=== PATIENT | male | born 1950 | race African-American/Black ===

== ENCOUNTER 2017-03-09 06:28 | Emergency (ER) | payer MEDICARE, MEDICAID ==
[~2017-03-09] VITALS: Ht 180.3 cm; Wt 78.9 kg
[~2017-03-09 06:28] MED LIST: GABAPENTIN100 MG ORAL; NKM; OXYCONTIN10 MG ORAL; PROZAC10 MG ORAL; RISPERDAL0.25 MG ORAL; TRAZODONE HCL50 MG PO; UNOBMED; VICODIN1 TA1 ORAL
[2017-03-09 06:47] VITALS: BP 151/96
[2017-03-09] MEDS ORDERED: GABAPENTIN300 MG ORAL (07:28)
[2017-03-09] MEDS ORDERED: Thiamine 100mg tab ORAL ONE (07:30)
[2017-03-09 07:54] VITALS: BP 148/95
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
--- NOTE | 2017-03-09 12:16 | Diagnostic Imaging Report ---
Indications: Pain Technique: Spiral acquisitions obtained through the brain. Angled axial and coronal 5 x 5 mm slices were reconstructed. Total dose length product 1404 mGycm. CTDI vol(s) 70 mGy. Dose reduction achieved using automated exposure control Comparison: 07/02/2013 Findings: Again demonstrated is age-related enlargement of ventricles and extra-axial CSF spaces. No acute hemorrhage or edema. No mass effect or midline shift. Normal mccrary-white differentiation. There is mild periventricular the white matter chronic ischemic change. Again demonstrated are extensive calcifications within the right side of the tentorium, unchanged. Again demonstrated is extensive postsurgical and posttraumatic abnormality of the facial bones. Findings are unchanged from 2013 exam Impression: Chronic and age-related changes, as described Negative for acute intracranial bleed or mass effect. This agrees with the preliminary interpretation provided overnight by Dr. Pastrana The CT scanner at [facility] is accredited by the [employer] and the scans are performed using protocols designed to limit radiation exposure to as low as reasonably achievable to attain images of sufficient resolution adequate for diagnostic evaluation.
== END 2017-03-09 07:56 | disposition home or self-care (01) ==
LOC: EMR 07:09
DX: R51 Headache (principal); S00.31XA Abrasion of nose, initial encounter; X58.XXXA Exposure to other specified factors, initial encounter; Y92.89 Other specified places as the place of occurrence of the external cause; I10 Essential (primary) hypertension
CPT/HCPCS: 70450; 70486; 99284

== ENCOUNTER 2017-04-17 18:26 | Inpatient (IN) | payer MEDICARE, MEDICAID, OTHER ==
[~2017-04-17] VITALS: Ht 180.3 cm; Wt 93.4 kg
[~2017-04-17 18:26] MED LIST changes: +GABAPENTIN300 MG ORAL
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
[2017-04-17 19:46] LABS: BASOPHILS % (AUTO) 1.4 % (0.0-2.0); EOSINOPHILS % (AUTO) 0.7 % (0.0-3.0); LYMPHOCYTES % (AUTO) 36.7 % (20.0-45.0); MEAN CORPUSCULAR HEMOGLOBIN 33.5 PG (27.0-31.0); MEAN CORPUSCULAR HGB CONC 33.5 G/DL (32.0-36.0); MEAN CORPUSCULAR VOLUME 100 FL (80-99); MEAN PLATELET VOLUME 6.4 FL (6.5-10.1); NEUTROPHILS % (AUTO) 49.3 % (45.0-75.0); PLATELET COUNT 130 K/UL (150-450); RED BLOOD COUNT 3.98 M/UL (4.70-6.10); RED CELL DISTRIBUTION WIDTH 12.9 % (11.6-14.8); WHITE BLOOD COUNT 3.9 K/UL (4.8-10.8)
[2017-04-17 19:47] LABS: APPEARANCE,URINE CLEAR; KETONES,URINE NEGATIVE (NEGATIVE); LEUKOCYTE ESTERASE ,URINE NEGATIVE (NEGATIVE); NITRITE,URINE NEGATIVE (NEGATIVE); PH,URINE 5 (4.5-8.0); PROTEIN,URINE NEGATIVE (NEGATIVE); UROBILINOGEN,URINE NORMAL MG/DL (0.0-1.0)
[2017-04-17 20:02] LABS: TROPONIN I < 0.30 ng/mL (<=0.30)
[2017-04-17 20:06] LABS: ALANINE AMINOTRANSFERASE 43 U/L (3-41); ALBUMIN/GLOBULIN RATIO 1.5 (1.0-2.7); ANION GAP 13 (5-15); ASPARTATE AMINO TRANSFERASE 85 U/L (5-40); CALCIUM 8.7 mg/dL (8.6-10.2); CARBON DIOXIDE 24 mEQ/L (20-30); CHLORIDE 106 mEQ/L (98-107); CREATININE 0.8 mg/dL (0.7-1.2); GLOMERULAR FILTRATION RATE > 60 mL/min (>60); HEMOLYSIS 10; POTASSIUM 3.7 mEQ/L (3.4-4.9); SODIUM 143 mEQ/L (135-145); TOTAL PROTEIN 6.5 g/dL (6.6-8.7)
[2017-04-17 20:11] VITALS: BP 138/88
[2017-04-18] MEDS ORDERED: Norco 5mg/325mg tab ORAL PRN (01:00)
[2017-04-18] MEDS ORDERED: Acetaminophen 500mg (ES) tab ORAL PRN (01:00)
[2017-04-18] MEDS: Norco 5mg/325mg tab ORAL PRN ×3 (03:23→15:56)
[2017-04-18 07:53] LABS: BASOPHILS % (AUTO) 0.5 % (0.0-2.0); EOSINOPHILS % (AUTO) 0.9 % (0.0-3.0); LYMPHOCYTES % (AUTO) 31.9 % (20.0-45.0); MEAN CORPUSCULAR HEMOGLOBIN 33.4 PG (27.0-31.0); MEAN CORPUSCULAR VOLUME 101 FL (80-99); MEAN PLATELET VOLUME 6.9 FL (6.5-10.1); MONOCYTES % (AUTO) 11.5 % (1.0-10.0); NEUTROPHILS % (AUTO) 55.2 % (45.0-75.0); PLATELET COUNT 129 K/UL (150-450); RED BLOOD COUNT 3.89 M/UL (4.70-6.10); RED CELL DISTRIBUTION WIDTH 12.9 % (11.6-14.8); WHITE BLOOD COUNT 3.6 K/UL (4.8-10.8)
[2017-04-18 08:14] LABS: ALANINE AMINOTRANSFERASE 39 U/L (3-41); ALBUMIN/GLOBULIN RATIO 1.5 (1.0-2.7); ANION GAP 9 (5-15); ASPARTATE AMINO TRANSFERASE 76 U/L (5-40); CALCIUM 8.3 mg/dL (8.6-10.2); CARBON DIOXIDE 25 mEQ/L (20-30); CHLORIDE 105 mEQ/L (98-107); CREATININE 0.8 mg/dL (0.7-1.2); GLOMERULAR FILTRATION RATE > 60 mL/min (>60); HEMOLYSIS 9; POTASSIUM 4.2 mEQ/L (3.4-4.9); SODIUM 139 mEQ/L (135-145)
[2017-04-18 08:37] VITALS: BP 134/89
[2017-04-18 11:49] VITALS: BP 120/77
--- NOTE | 2017-04-18 12:43 | Consultation ---
History of Present Illness General Chief Complaint: Syncope Present Illness HPI 66-year-old male presented after syncopal episodes. The patient reportedly had two witness syncopal episodes. the pt has mmp including brain damage. the pt knew he was in the hospital and the year however he didn't know the date. the pt was a poor historian, due to cognitive impairment. the pt endorses depressed mood, insomnia and anxiety. he is on trazodone "it makes me sleep". no manic or psychotic sxs. His appetite is fair. No SI/Hi. he has a SA "Long time ago." Allergies: Coded Allergies: No Known Allergies (Verified , 02/02/11) Medication History Scheduled Fluoxetine Hcl* (Prozac*), 10 MG ORAL DAILY, (Reported) Gabapentin* (Gabapentin*), 300 MG ORAL THREE TIMES A DAY No Known Medications* (NKM - No Known Medications*), 0 ., (Reported) Oxycodone Hcl Er* (Oxycontin*), 10 MG ORAL DAILY, (Reported) Miscellaneous Medications Acetaminophen/Hydrocodone 5/500 (Vicodin), 0 ORAL, (Reported) Gabapentin* (Gabapentin*), 300 ORAL, (Reported) Risperidone* (Risperdal*), 0 ORAL, (Reported) Trazodone Hcl* (Desyrel*), 0 PO, (Reported) Patient History Healthcare decision maker Resuscitation status Full Code Advanced Directive on File No Past Medical/Surgical History Past Medical/Surgical History: (1) Altered mental status (2) Failure to thrive (3) Dehydration (4) Headache (5) Failure to thrive (6) Chest pain (7) Dehydration (8) Chest pain (9) Opiate addiction (10) Rhabdomyolysis (11) Acute chest pain (12) Hypokalemia (13) Atypical chest pain (14) Altered mental status (15) inability to care for self (16) suicidal ideation (17) medical screening exam (18) alcohol abuse (19) facial pain (20) [id number] (21) alcohol abuse (22) Acute alcoholic intoxication (23) Dislocation of left shoulder joint (24) Shoulder fracture, left (25) Left shoulder pain (26) Osteoarthritis of left shoulder (27) Drug abuse (28) Paranoid schizophrenia (29) Facial pain (30) Traumatic brain injury (31) Syncope Review of Systems Constitutional: Reports: malaise, weakness Psychiatric: Reports: anxiety, depressed feelings, emotional problems Physical Exam General Appearance: alert, mild distress, thin Neurologic: alert, responsive, disoriented, depressed affect Last 24 Hour Vital Signs Date Time Temp Pulse Resp B/P Pulse Ox O2 Delivery O2 Flow Rate FiO2 04/18/17 11:49 97.3 62 18 120/77 96 Room Air 04/18/17 09:31 70 134/89 04/18/17 08:37 97.5 70 18 134/89 95 Room Air 04/18/17 08:01 69 04/18/17 04:00 63 04/18/17 00:07 97.9 77 23 138/88 96 Room Air 04/18/17 00:00 63 04/17/17 20:11 97.9 77 23 138/88 96 Room Air 04/17/17 18:29 97.9 90 16 156/101 95 Room Air Intake and Output 04/17/17 04/18/17 19:00 07:00 Intake Total 600 ml Output Total 850 ml Balance -250 ml Intake Oral 100 ml IV Total 500 ml Output Urine Total 850 ml # Voids 3 Laboratory Tests Test 04/17/17 19:17 04/17/17 19:31 04/18/17 06:50 White Blood Count 3.9 K/UL (4.8-10.8) L 3.6 K/UL (4.8-10.8) L Red Blood Count 3.98 M/UL (4.70-6.10) L 3.89 M/UL (4.70-6.10) L Hemoglobin 13.3 G/DL (14.2-18.0) L 13.0 G/DL (14.2-18.0) L Hematocrit 39.8 % (42.0-52.0) L 39.3 % (42.0-52.0) L Mean Corpuscular Volume 100 FL (80-99) H 101 FL (80-99) H Mean Corpuscular Hemoglobin 33.5 PG (27.0-31.0) H 33.4 PG (27.0-31.0) H Mean Corpuscular Hemoglobin Concent 33.5 G/DL (32.0-36.0) 33.0 G/DL (32.0-36.0) Red Cell Distribution Width 12.9 % (11.6-14.8) 12.9 % (11.6-14.8) Platelet Count 130 K/UL (150-450) L 129 K/UL (150-450) L Mean Platelet Volume 6.4 FL (6.5-10.1) L 6.9 FL (6.5-10.1) Neutrophils (%) (Auto) 49.3 % (45.0-75.0) 55.2 % (45.0-75.0) Lymphocytes (%) (Auto) 36.7 % (20.0-45.0) 31.9 % (20.0-45.0) Monocytes (%) (Auto) 12.0 % (1.0-10.0) H 11.5 % (1.0-10.0) H Eosinophils (%) (Auto) 0.7 % (0.0-3.0) 0.9 % (0.0-3.0) Basophils (%) (Auto) 1.4 % (0.0-2.0) 0.5 % (0.0-2.0) Sodium Level 143 mEQ/L (135-145) 139 mEQ/L (135-145) Potassium Level 3.7 mEQ/L (3.4-4.9) 4.2 mEQ/L (3.4-4.9) Chloride Level 106 mEQ/L (98-107) 105 mEQ/L (98-107) Carbon Dioxide Level 24 mEQ/L (20-30) 25 mEQ/L (20-30) Anion Gap 13 (5-15) 9 (5-15) Blood Urea Nitrogen 9 mg/dL (7-23) 10 mg/dL (7-23) Creatinine 0.8 mg/dL (0.7-1.2) 0.8 mg/dL (0.7-1.2) Estimat Glomerular Filtration Rate > 60 mL/min (>60) > 60 mL/min (>60) Glucose Level 86 mg/dL (74-106) 92 mg/dL (74-106) Calcium Level 8.7 mg/dL (8.6-10.2) 8.3 mg/dL (8.6-10.2) L Total Bilirubin 0.5 mg/dL (0.0-1.2) 0.7 mg/dL (0.0-1.2) Aspartate Amino Transf (AST/SGOT) 85 U/L (5-40) H 76 U/L (5-40) H Alanine Aminotransferase (ALT/SGPT) 43 U/L (3-41) H 39 U/L (3-41) Alkaline Phosphatase 64 U/L (40-129) 60 U/L (40-129) Troponin I < 0.30 ng/mL (<=0.30) Total Protein 6.5 g/dL (6.6-8.7) L 6.0 g/dL (6.6-8.7) L Albumin 3.9 g/dL (3.5-5.2) 3.6 g/dL (3.5-5.2) Globulin 2.6 g/dL 2.4 g/dL Albumin/Globulin Ratio 1.5 (1.0-2.7) 1.5 (1.0-2.7) Serum Alcohol < 10 mg/dL Urine Color Yellow Urine Appearance Clear Urine pH 5 (4.5-8.0) Urine Specific [place] 1.020 (1.005-1.035) Urine Protein Negative (NEGATIVE) Urine Glucose (UA) Negative (NEGATIVE) Urine Ketones Negative (NEGATIVE) Urine Occult Blood Negative (NEGATIVE) Urine Nitrite Negative (NEGATIVE) Urine Bilirubin Negative (NEGATIVE) Urine Urobilinogen Normal MG/DL (0.0-1.0) Urine Leukocyte Esterase Negative (NEGATIVE) Urine Opiates Screen Negative (NEGATIVE) Urine Barbiturates Screen Negative (NEGATIVE) Phencyclidine (PCP) Screen Negative (NEGATIVE) Urine Amphetamines Screen Negative (NEGATIVE) Urine Benzodiazepines Screen Negative (NEGATIVE) Urine Cocaine Screen Negative (NEGATIVE) Urine Marijuana (THC) Screen Negative (NEGATIVE) Height (Feet): 5 Height (Inches): 11.00 Weight (Pounds): 206 Medications Current Medications Medications (Trade) Dose Ordered Sig/Brett Route PRN Reason Start Time Stop Time Status Last Admin Dose Admin Acetaminophen (Tylenol) 500 mg Q4H PRN ORAL Mild Pain/Temp > 100.5 04/18/17 01:00 05/18/17 00:59 Acetaminophen/ Hydrocodone Bitart ([place] 5/325) 1 tab Q6H PRN ORAL Moderate Breakthru Pain (5-7) 04/18/17 07:00 04/25/17 06:59 04/18/17 09:34 Amlodipine Besylate (Norvasc) 5 mg DAILY ORAL 04/18/17 09:00 05/18/17 08:59 04/18/17 09:31 Assessment/Plan Status: stable Assessment/Plan the pt was anxious and was perseverating "slow down, I feel confused". s/p TBI last year. He was in come for one month and had brain surgery. -dc trazodone -start Florecita Villatoro M.D. Apr 18, 2017 12:43
--- NOTE | 2017-04-18 13:07 | Neurology Progress Note ---
Objective Physical Exam Last Vital Signs Date Time Temp Pulse Resp B/P Pulse Ox O2 Delivery O2 Flow Rate FiO2 04/18/17 11:49 97.3 62 18 120/77 96 Room Air Laboratory Tests Test 04/17/17 19:17 04/17/17 19:31 04/18/17 06:50 White Blood Count 3.9 K/UL (4.8-10.8) L 3.6 K/UL (4.8-10.8) L Red Blood Count 3.98 M/UL (4.70-6.10) L 3.89 M/UL (4.70-6.10) L Hemoglobin 13.3 G/DL (14.2-18.0) L 13.0 G/DL (14.2-18.0) L Hematocrit 39.8 % (42.0-52.0) L 39.3 % (42.0-52.0) L Mean Corpuscular Volume 100 FL (80-99) H 101 FL (80-99) H Mean Corpuscular Hemoglobin 33.5 PG (27.0-31.0) H 33.4 PG (27.0-31.0) H Mean Corpuscular Hemoglobin Concent 33.5 G/DL (32.0-36.0) 33.0 G/DL (32.0-36.0) Red Cell Distribution Width 12.9 % (11.6-14.8) 12.9 % (11.6-14.8) Platelet Count 130 K/UL (150-450) L 129 K/UL (150-450) L Mean Platelet Volume 6.4 FL (6.5-10.1) L 6.9 FL (6.5-10.1) Neutrophils (%) (Auto) 49.3 % (45.0-75.0) 55.2 % (45.0-75.0) Lymphocytes (%) (Auto) 36.7 % (20.0-45.0) 31.9 % (20.0-45.0) Monocytes (%) (Auto) 12.0 % (1.0-10.0) H 11.5 % (1.0-10.0) H Eosinophils (%) (Auto) 0.7 % (0.0-3.0) 0.9 % (0.0-3.0) Basophils (%) (Auto) 1.4 % (0.0-2.0) 0.5 % (0.0-2.0) Sodium Level 143 mEQ/L (135-145) 139 mEQ/L (135-145) Potassium Level 3.7 mEQ/L (3.4-4.9) 4.2 mEQ/L (3.4-4.9) Chloride Level 106 mEQ/L (98-107) 105 mEQ/L (98-107) Carbon Dioxide Level 24 mEQ/L (20-30) 25 mEQ/L (20-30) Anion Gap 13 (5-15) 9 (5-15) Blood Urea Nitrogen 9 mg/dL (7-23) 10 mg/dL (7-23) Creatinine 0.8 mg/dL (0.7-1.2) 0.8 mg/dL (0.7-1.2) Estimat Glomerular Filtration Rate > 60 mL/min (>60) > 60 mL/min (>60) Glucose Level 86 mg/dL (74-106) 92 mg/dL (74-106) Calcium Level 8.7 mg/dL (8.6-10.2) 8.3 mg/dL (8.6-10.2) L Total Bilirubin 0.5 mg/dL (0.0-1.2) 0.7 mg/dL (0.0-1.2) Aspartate Amino Transf (AST/SGOT) 85 U/L (5-40) H 76 U/L (5-40) H Alanine Aminotransferase (ALT/SGPT) 43 U/L (3-41) H 39 U/L (3-41) Alkaline Phosphatase 64 U/L (40-129) 60 U/L (40-129) Troponin I < 0.30 ng/mL (<=0.30) Total Protein 6.5 g/dL (6.6-8.7) L 6.0 g/dL (6.6-8.7) L Albumin 3.9 g/dL (3.5-5.2) 3.6 g/dL (3.5-5.2) Globulin 2.6 g/dL 2.4 g/dL Albumin/Globulin Ratio 1.5 (1.0-2.7) 1.5 (1.0-2.7) Serum Alcohol < 10 mg/dL Urine Color Yellow Urine Appearance Clear Urine pH 5 (4.5-8.0) Urine Specific [place] 1.020 (1.005-1.035) Urine Protein Negative (NEGATIVE) Urine Glucose (UA) Negative (NEGATIVE) Urine Ketones Negative (NEGATIVE) Urine Occult Blood Negative (NEGATIVE) Urine Nitrite Negative (NEGATIVE) Urine Bilirubin Negative (NEGATIVE) Urine Urobilinogen Normal MG/DL (0.0-1.0) Urine Leukocyte Esterase Negative (NEGATIVE) Urine Opiates Screen Negative (NEGATIVE) Urine Barbiturates Screen Negative (NEGATIVE) Phencyclidine (PCP) Screen Negative (NEGATIVE) Urine Amphetamines Screen Negative (NEGATIVE) Urine Benzodiazepines Screen Negative (NEGATIVE) Urine Cocaine Screen Negative (NEGATIVE) Urine Marijuana (THC) Screen Negative (NEGATIVE) Impression/Recommendations Problems: (1) Syncope, vasovagal (2) Traumatic brain injury (3) Opiate addiction Status: stable Recommendations # [id number] GRAZYNA MORAN Apr 18, 2017 13:07
[2017-04-18 13:39] LABS: THYROID STIMULATING HORMONE 1.78 uIU/mL (0.300-4.500)
--- NOTE | 2017-04-18 15:02 | Infectious Diseases Prog Note ---
Assessment/Plan Problems: (1) Syncope Assessment & Plan: doubt infectious etiology, will send blood culture, and check CXR, monitor clinically for now, recommend neurology and cardiology consult (2) Dehydration Assessment & Plan: continue IVF for hydration (3) Traumatic brain injury Assessment & Plan: continue supportive care . Subjective Allergies: Coded Allergies: No Known Allergies (Verified , 02/02/11) Objective Vital Signs Last 24 Hour Vital Signs Date Time Temp Pulse Resp B/P Pulse Ox O2 Delivery O2 Flow Rate FiO2 04/18/17 11:49 97.3 62 18 120/77 96 Room Air 04/18/17 09:31 70 134/89 04/18/17 08:37 97.5 70 18 134/89 95 Room Air 04/18/17 08:01 69 04/18/17 04:00 63 04/18/17 00:07 97.9 77 23 138/88 96 Room Air 04/18/17 00:00 63 04/17/17 20:11 97.9 77 23 138/88 96 Room Air 04/17/17 18:29 97.9 90 16 156/101 95 Room Air Height (Feet): 5 Height (Inches): 11.00 Weight (Pounds): 206 Laboratory Tests Test 04/17/17 19:17 04/17/17 19:31 04/18/17 06:50 White Blood Count 3.9 K/UL (4.8-10.8) L 3.6 K/UL (4.8-10.8) L Red Blood Count 3.98 M/UL (4.70-6.10) L 3.89 M/UL (4.70-6.10) L Hemoglobin 13.3 G/DL (14.2-18.0) L 13.0 G/DL (14.2-18.0) L Hematocrit 39.8 % (42.0-52.0) L 39.3 % (42.0-52.0) L Mean Corpuscular Volume 100 FL (80-99) H 101 FL (80-99) H Mean Corpuscular Hemoglobin 33.5 PG (27.0-31.0) H 33.4 PG (27.0-31.0) H Mean Corpuscular Hemoglobin Concent 33.5 G/DL (32.0-36.0) 33.0 G/DL (32.0-36.0) Red Cell Distribution Width 12.9 % (11.6-14.8) 12.9 % (11.6-14.8) Platelet Count 130 K/UL (150-450) L 129 K/UL (150-450) L Mean Platelet Volume 6.4 FL (6.5-10.1) L 6.9 FL (6.5-10.1) Neutrophils (%) (Auto) 49.3 % (45.0-75.0) 55.2 % (45.0-75.0) Lymphocytes (%) (Auto) 36.7 % (20.0-45.0) 31.9 % (20.0-45.0) Monocytes (%) (Auto) 12.0 % (1.0-10.0) H 11.5 % (1.0-10.0) H Eosinophils (%) (Auto) 0.7 % (0.0-3.0) 0.9 % (0.0-3.0) Basophils (%) (Auto) 1.4 % (0.0-2.0) 0.5 % (0.0-2.0) Sodium Level 143 mEQ/L (135-145) 139 mEQ/L (135-145) Potassium Level 3.7 mEQ/L (3.4-4.9) 4.2 mEQ/L (3.4-4.9) Chloride Level 106 mEQ/L (98-107) 105 mEQ/L (98-107) Carbon Dioxide Level 24 mEQ/L (20-30) 25 mEQ/L (20-30) Anion Gap 13 (5-15) 9 (5-15) Blood Urea Nitrogen 9 mg/dL (7-23) 10 mg/dL (7-23) Creatinine 0.8 mg/dL (0.7-1.2) 0.8 mg/dL (0.7-1.2) Estimat Glomerular Filtration Rate > 60 mL/min (>60) > 60 mL/min (>60) Glucose Level 86 mg/dL (74-106) 92 mg/dL (74-106) Calcium Level 8.7 mg/dL (8.6-10.2) 8.3 mg/dL (8.6-10.2) L Total Bilirubin 0.5 mg/dL (0.0-1.2) 0.7 mg/dL (0.0-1.2) Aspartate Amino Transf (AST/SGOT) 85 U/L (5-40) H 76 U/L (5-40) H Alanine Aminotransferase (ALT/SGPT) 43 U/L (3-41) H 39 U/L (3-41) Alkaline Phosphatase 64 U/L (40-129) 60 U/L (40-129) Troponin I < 0.30 ng/mL (<=0.30) Total Protein 6.5 g/dL (6.6-8.7) L 6.0 g/dL (6.6-8.7) L Albumin 3.9 g/dL (3.5-5.2) 3.6 g/dL (3.5-5.2) Globulin 2.6 g/dL 2.4 g/dL Albumin/Globulin Ratio 1.5 (1.0-2.7) 1.5 (1.0-2.7) Serum Alcohol < 10 mg/dL Urine Color Yellow Urine Appearance Clear Urine pH 5 (4.5-8.0) Urine Specific [place] 1.020 (1.005-1.035) Urine Protein Negative (NEGATIVE) Urine Glucose (UA) Negative (NEGATIVE) Urine Ketones Negative (NEGATIVE) Urine Occult Blood Negative (NEGATIVE) Urine Nitrite Negative (NEGATIVE) Urine Bilirubin Negative (NEGATIVE) Urine Urobilinogen Normal MG/DL (0.0-1.0) Urine Leukocyte Esterase Negative (NEGATIVE) Urine Opiates Screen Negative (NEGATIVE) Urine Barbiturates Screen Negative (NEGATIVE) Phencyclidine (PCP) Screen Negative (NEGATIVE) Urine Amphetamines Screen Negative (NEGATIVE) Urine Benzodiazepines Screen Negative (NEGATIVE) Urine Cocaine Screen Negative (NEGATIVE) Urine Marijuana (THC) Screen Negative (NEGATIVE) Ammonia Pending Vitamin B12 Level Pending Thyroid Stimulating Hormone (TSH) 1.780 uIU/mL (0.300-4.500) Current Medications Medications (Trade) Dose Ordered Sig/Brett Route PRN Reason Start Time Stop Time Status Last Admin Dose Admin Acetaminophen (Tylenol) 500 mg Q4H PRN ORAL Mild Pain/Temp > 100.5 04/18/17 01:00 05/18/17 00:59 Acetaminophen/ Hydrocodone Bitart ([place] 5/325) 1 tab Q6H PRN ORAL Moderate Breakthru Pain (5-7) 04/18/17 07:00 04/25/17 06:59 04/18/17 09:34 Amlodipine Besylate (Norvasc) 5 mg DAILY ORAL 04/18/17 09:00 05/18/17 08:59 04/18/17 09:31 Escitalopram Oxalate (Lexapro) 10 mg DAILY ORAL 04/19/17 09:00 05/19/17 08:59 Mirtazapine (Remeron) 7.5 mg QHS ORAL 04/18/17 21:00 05/18/17 20:59 Kelli Smith M.D. Apr 18, 2017 15:02
[2017-04-18 15:39] VITALS: BP 131/88
--- NOTE | 2017-04-18 16:45 | Consultation ---
DATE OF CONSULTATION: INFECTIOUS DISEASE CONSULTATION CONSULTING PHYSICIAN: Kelli Smith M.D. REQUESTING PHYSICIAN: Brii Waters M.D. REASON FOR CONSULTATION: Syncope, rule out infectious etiology. HISTORY OF PRESENT ILLNESS: The patient is a 66-year-old male with history of traumatic brain injury, hypertension, and memory loss, was sent to [facility] for syncopal episode at the facility where he lives. The patient had two witnessed syncopal episodes, one of them happened while he was standing. The patient denied any cough or shortness of breath. No fever or chills. No nausea or diarrhea. No urinary symptoms. The patient was admitted to the hospital for further evaluation and management and I was consulted by the primary provider for antibiotics treatment for possible infection. PAST MEDICAL HISTORY: Significant for hypertension, traumatic brain injury, and memory loss. PAST SURGICAL HISTORY: Unknown and undocumented. MEDICATIONS: He is on Lexapro, Remeron, Norvasc, Biddle, and Tylenol. ALLERGIES: He has no known drug allergy. SOCIAL HISTORY: He lives in long term facility. No recent drugs, tobacco, or alcohol. FAMILY HISTORY: Unable to obtain. REVIEW OF SYSTEMS: Unable to obtain. The patient is a poor historian and cannot provide any history. PHYSICAL EXAMINATION: VITAL SIGNS: Temperature 97.3 degrees, pulse 62, respirations 18, blood pressure 120/77, and pulse oximetry 96% on room air. GENERAL: A middle-aged male, lying in bed, awake, alert, and not in distress. Follow commands. HEENT: Normocephalic and atraumatic. Pupils reactive to light equally. Pale sclera. Moist oral mucosa. No exudate. NECK: Supple. No lymphadenopathy. CARDIOVASCULAR: Regular rate and rhythm. No murmur or gallop. LUNGS: Clear bilaterally. Diminished breathing sounds at the bases. No wheezing or rhonchi. ABDOMEN: Soft, nontender, and nondistended. Positive bowel sounds. No hepatosplenomegaly or ascites. EXTREMITY: No edema or cyanosis. SKIN: No rash or hives. NEUROLOGIC: He moves all extremities. No facial droop. No sensory changes. LABORATORY DATA: Labs showed white count of 3.6, hemoglobin of 13, and platelet count of 129,000. BUN of 10 and creatinine of 0.8. AST of 76 and ALT of 39. Urine analysis was negative for urinary tract infection. Toxicology screening was negative. IMAGING: He had a head CT scan, which was negative for any acute bleeding. ASSESSMENT AND RECOMMENDATIONS: 1. Syncope, suspect vasovagal in etiology. Doubt infectious etiology at this point, but we will send blood culture and order a chest x-ray to rule out pneumonia. We will monitor the patient clinically for now. Recommend Neurology and Cardiology consult. Continue tele monitor. 2. Dehydration. Continue intravenous fluid for hydration and monitor blood pressure and electrolytes. 3. Traumatic brain injury. Continue supportive care. Kelli Smith M.D. DR: MURIEL JOB#: [id number] CC:
--- NOTE | 2017-04-18 16:48 | Cardiology Report ---
APPROVED REPORT EKG Measurement Heart [id number] Sinus rhythm with 1st degree AV block Otherwise normal ECG
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
[2017-04-18] MEDS ORDERED: Pneumococcal Vaccine 25mcg/0.5ml IM ONE (18:30)
[2017-04-18 20:00] VITALS: BP 136/86
[2017-04-19] VITALS (7 sets, daily range): BP systolic 126–151; BP diastolic 60–93
[2017-04-19] MEDS: Norco 5mg/325mg tab ORAL PRN ×3 (03:47→21:32)
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
--- NOTE | 2017-04-19 17:25 | Infectious Diseases Prog Note ---
Assessment/Plan Problems: (1) Syncope Assessment & Plan: doubt infectious etiology, await blood culture, and CXR, monitor clinically for now, neurology and cardiology are following (2) Dehydration Assessment & Plan: continue IVF for hydration (3) Traumatic brain injury Assessment & Plan: continue supportive care . Subjective Constitutional: Reports: no symptoms HEENT: Reports: no symptoms Respiratory: Reports: no symptoms Breasts: Reports: no symptoms Cardiovascular: Reports: no symptoms Gastrointestinal/Abdominal: Reports: no symptoms Genitourinary: Reports: no symptoms Neurologic: Reports: no symptoms Psychiatric: Reports: no symptoms Skin: Reports: no symptoms Endocrine: Reports: no symptoms Hematologic: Reports: no symptoms Allergies: Coded Allergies: No Known Allergies (Verified , 02/02/11) Objective Vital Signs Last 24 Hour Vital Signs Date Time Temp Pulse Resp B/P Pulse Ox O2 Delivery O2 Flow Rate FiO2 04/19/17 16:00 97.2 92 21 140/89 96 Room Air 04/19/17 12:00 68 04/19/17 12:00 97.7 68 20 126/77 99 Room Air 04/19/17 11:03 74 123/74 04/19/17 08:00 97.4 76 21 150/60 94 Room Air 04/19/17 08:00 78 04/19/17 04:00 66 04/19/17 04:00 97.0 68 18 131/89 95 Room Air 04/19/17 00:00 66 04/19/17 00:00 97.0 65 18 151/74 95 Room Air 04/19/17 00:00 97.0 68 18 131/89 95 Room Air 04/18/17 20:00 74 04/18/17 20:00 97.0 65 18 136/86 95 Room Air Height (Feet): 5 Height (Inches): 11.00 Weight (Pounds): 206 General Appearance: WD/WN, no acute distress HEENT: normocephalic, atraumatic, anicteric, mucous membranes moist, PERRL, EOMI, pharynx normal, no JVD Respiratory/Chest: chest wall non-tender, lungs clear, normal breath sounds, no respiratory distress, no accessory muscle use Cardiovascular: normal peripheral pulses, normal rate, regular rhythm, no gallop/murmur, no JVD Abdomen: normal bowel sounds, soft, non tender, no organomegaly, non distended , no mass, no scars Extremities: no cyanosis, no clubbing Skin: no rash, no lesions Current Medications Medications (Trade) Dose Ordered Sig/Brett Route PRN Reason Start Time Stop Time Status Last Admin Dose Admin Acetaminophen (Tylenol) 500 mg Q4H PRN ORAL Mild Pain/Temp > 100.5 04/18/17 01:00 05/18/17 00:59 Acetaminophen/ Hydrocodone Bitart ([place] 5/325) 1 tab Q6H PRN ORAL Moderate Breakthru Pain (5-7) 04/18/17 07:00 04/25/17 06:59 04/19/17 15:32 Amlodipine Besylate (Norvasc) 5 mg DAILY ORAL 04/18/17 09:00 05/18/17 08:59 04/19/17 11:03 Escitalopram Oxalate (Lexapro) 10 mg DAILY ORAL 04/19/17 09:00 05/19/17 08:59 04/19/17 11:01 Gabapentin (Neurontin) 300 mg THREE TIMES A DAY ORAL 04/19/17 18:00 05/19/17 17:59 Mirtazapine (Remeron) 7.5 mg QHS ORAL 04/18/17 21:00 05/18/17 20:59 04/18/17 20:22 Kelli Smith M.D. Apr 19, 2017 17:25
--- NOTE | 2017-04-19 20:01 | General Progress Note ---
Assessment/Plan Problem List: (1) Rhabdomyolysis (2) Acute chest pain (3) Osteoarthritis of left shoulder ICD Codes: M19.012 - Primary osteoarthritis, left shoulder SNOMED: 52903872 (4) Dehydration (5) Syncope ICD Codes: R55 - Syncope and collapse SNOMED: 446154066, 477182592 (6) Traumatic brain injury ICD Codes: S06.9X9A - Unspecified intracranial injury with loss of consciousness of unspecified duration, initial encounter SNOMED: 091132644, 768073457 Status: progressing Assessment/Plan afebrile vitals stable no arrythmia no acute events Subjective ROS Limited/Unobtainable: Yes Constitutional: Reports: no symptoms Allergies: Coded Allergies: No Known Allergies (Verified , 02/02/11) Objective Last 24 Hour Vital Signs Date Time Temp Pulse Resp B/P Pulse Ox O2 Delivery O2 Flow Rate FiO2 04/19/17 19:50 98.8 72 20 137/93 98 Room Air 04/19/17 16:31 97.2 04/19/17 16:00 65 04/19/17 16:00 97.2 92 21 140/89 96 Room Air 04/19/17 12:00 68 04/19/17 12:00 97.7 68 20 126/77 99 Room Air 04/19/17 11:03 74 123/74 04/19/17 08:00 97.4 76 21 150/60 94 Room Air 04/19/17 08:00 78 04/19/17 04:00 66 04/19/17 04:00 97.0 68 18 131/89 95 Room Air 04/19/17 00:00 66 04/19/17 00:00 97.0 65 18 151/74 95 Room Air 04/19/17 00:00 97.0 68 18 131/89 95 Room Air Intake and Output 04/18/17 04/19/17 19:00 07:00 Intake Total 360 ml 1090 ml Output Total 2150 ml 2550 ml Balance -1790 ml -1460 ml Intake Oral 360 ml 1090 ml Output Urine Total 2150 ml 2550 ml Height (Feet): 5 Height (Inches): 11.00 Weight (Pounds): 206 Neck: supple Cardiovascular: normal rate Respiratory/Chest: lungs clear Brii Waters MD Apr 19, 2017 20:01
--- NOTE | 2017-04-19 23:37 | General Progress Note ---
Assessment/Plan Status: stable Assessment/Plan tbi, mdd anxiety cont Lexapro, Remeron Neurontin 300mg tid Subjective Constitutional: Reports: malaise, weakness Neurologic/Psychiatric: Reports: anxiety, depressed, emotional problems, headache Allergies: Coded Allergies: No Known Allergies (Verified , 02/02/11) Subjective c/o pain in face area Objective Last 24 Hour Vital Signs Date Time Temp Pulse Resp B/P Pulse Ox O2 Delivery O2 Flow Rate FiO2 04/19/17 19:50 98.8 72 20 137/93 98 Room Air 04/19/17 16:31 97.2 04/19/17 16:00 65 04/19/17 16:00 97.2 92 21 140/89 96 Room Air 04/19/17 12:00 68 04/19/17 12:00 97.7 68 20 126/77 99 Room Air 04/19/17 11:03 74 123/74 04/19/17 08:00 97.4 76 21 150/60 94 Room Air 04/19/17 08:00 78 04/19/17 04:00 66 04/19/17 04:00 97.0 68 18 131/89 95 Room Air 04/19/17 00:00 66 04/19/17 00:00 97.0 65 18 151/74 95 Room Air 04/19/17 00:00 97.0 68 18 131/89 95 Room Air Intake and Output 04/18/17 04/19/17 19:00 07:00 Intake Total 360 ml 1090 ml Output Total 2150 ml 2550 ml Balance -1790 ml -1460 ml Intake Oral 360 ml 1090 ml Output Urine Total 2150 ml 2550 ml Height (Feet): 5 Height (Inches): 11.00 Weight (Pounds): 206 General Appearance: alert, mild distress Neurologic: alert, oriented x 3, responsive, depressed affect Florecita Miller M.D. Apr 19, 2017 23:37
--- NOTE | 2017-04-20 00:30 | Consultation ---
DATE OF CONSULTATION: 04/19/2017 HEMATOLOGY/ONCOLOGYCONSULTATION CONSULTING PHYSICIAN: Dwayne Martinez M.D. REQUESTING PHYSICIAN: Brii Waters M.D. REASON FOR CONSULTATION: Evaluation of leukopenia and thrombocytopenia. IDENTIFICATION DATA: Dear Dr. Brii Waters, The patient is a pleasant 66-year-old male with a past medical history which is significant for brain surgery and left shoulder surgery, resident at [facility] ([facility]) who was admitted after having documented episodes of loss of consciousness. They were observed by family member. Upon presentation to the ER, he was noted to have leukopenia, white count less than 4, and platelet count less than 130,000 with transaminitis. Hematology service was consulted. The patient has a history of hepatitis C. PAST MEDICAL HISTORY: As noted above. PAST SURGICAL HISTORY: None known. MEDICATIONS: OxyContin, Prozac, Neurontin, trazodone, and Risperdal. ALLERGIES: None reported. FAMILY HISTORY: Noncontributory. REVIEW OF SYSTEMS: Constitutional: No fever, no chills, and no night sweats. Skin: No rashes, bumps, or itching. HEENT: No headache, hearing, or vision changes. Breasts: No lumps, pain, or discharge. Pulmonary: No cough, sputum, or shortness of breath. Cardiovascular: No chest pain, tightness, or palpitations. Gastrointestinal: No nausea, vomiting, or diarrhea. Genitourinary: No dysuria, frequency, or urgency. Musculoskeletal: No joint swelling, muscle pain, or trauma. Neurologic: No dizziness, fainting, or seizures. PHYSICAL EXAMINATION: GENERAL: The patient is in no distress. VITAL SIGNS: Reviewed. PULMONARY: Decreased breath sounds. CARDIOVASCULAR: Regular rate. No S3 or S4. ABDOMEN: Soft, nontender, and nondistended. EXTREMITIES: There is 1+ edema. LABORATORY DATA: WBC 3.6, hemoglobin 13, hematocrit 39, and platelet count 129,000, MCV 101. BUN 10 and creatinine 0.8. . ASSESSMENT: 1. Leukopenia likely secondary to underlying splenomegaly and cirrhosis. 2. Anemia secondary to chronic disease. 3. Thrombocytopenia secondary to underlying splenomegaly and cirrhosis. 4. Hepatitis C history. 5. Syncopal episode. 6. Dehydration. 7. Traumatic brain injury. 8. Discussed with staff. Dwayne Martinez M.D. DR: ELBERT JOB#: [id number] CC:
[2017-04-20 04:00] VITALS: BP 134/82
[2017-04-20 07:54] VITALS: BP 128/82
--- NOTE | 2017-04-20 11:33 | Diagnostic Imaging Report ---
Indication: Dyspnea Comparison: 11/27/13 A single view chest radiograph was obtained. Findings: There is a left shoulder prosthesis present. Heart size is normal. Aorta is mildly dilated. Lungs are clear. Bones are osteopenic. Impression: No acute cardiopulmonary disease
[2017-04-20 12:00] VITALS: BP 121/79
[2017-04-20] MEDS: Norco 5mg/325mg tab ORAL PRN (12:11)
--- NOTE | 2017-04-20 12:48 | Diagnostic Imaging Report ---
APPROVED REPORT CPT Code: 79168 Present Symptoms Comments: R/O DVT Chest pain BILATERAL: Imaging reveals a patent deep venous system bilaterally. There is no evidence of thrombus within the femoral, popliteal or tibial segments. The greater saphenous veins are also within normal limits. Doppler indicates normal spontaneous flow within these segments.
--- NOTE | 2017-04-20 13:41 | Diagnostic Imaging Report ---
Indication:Abdominal pain Technique: Grayscale and duplex Doppler imaging of the abdomen performed. Comparison: None Findings: The liver, demonstrated part of the pancreas, gallbladder, aorta and IVC, both kidneys, spleen appear unremarkable. There is no biliary ductal dilatation identified. CBD measures 6.5 cm. Doppler evaluation of the main portal vein shows patency. There is no ascites. No hydronephrosis seen. Impression: Negative abdominal ultrasound.
--- NOTE | 2017-04-20 14:51 | General Progress Note ---
Assessment/Plan Assessment/Plan tbi, mdd anxiety cont Lexapro, Remeron Neurontin 300mg tid Subjective Constitutional: Reports: malaise, weakness Neurologic/Psychiatric: Reports: anxiety, depressed, emotional problems, tingling Allergies: Coded Allergies: No Known Allergies (Verified , 02/02/11) Subjective c/o facial pain unsure weather Neurontin is helpful/ Objective Last 24 Hour Vital Signs Date Time Temp Pulse Resp B/P Pulse Ox O2 Delivery O2 Flow Rate FiO2 04/20/17 12:00 97.9 75 121/79 04/20/17 08:00 68 04/20/17 07:54 97.9 75 128/82 04/20/17 04:00 73 04/20/17 04:00 98.2 68 20 134/82 98 Room Air 04/20/17 00:00 65 04/19/17 23:44 98.3 75 21 131/85 98 Room Air 04/19/17 20:00 69 04/19/17 19:50 98.8 72 20 137/93 98 Room Air 04/19/17 16:31 97.2 04/19/17 16:00 65 04/19/17 16:00 97.2 92 21 140/89 96 Room Air Intake and Output 04/19/17 04/20/17 19:00 07:00 Intake Total 300 ml Output Total 900 ml 600 ml Balance -600 ml -600 ml Intake Oral 300 ml Output Urine Total 900 ml 600 ml # Voids 1 Height (Feet): 5 Height (Inches): 11.00 Weight (Pounds): 206 General Appearance: no apparent distress, alert, thin Neurologic: alert, oriented x 3, responsive, depressed affect Florecita Miller M.D. Apr 20, 2017 14:51
--- NOTE | 2017-04-20 17:20 | General Progress Note ---
Assessment/Plan Assessment/Plan 1. Leukopenia likely secondary to underlying splenomegaly and cirrhosis. 2. Anemia secondary to chronic disease. --> monitor --> hgb goal above 7 3. Thrombocytopenia secondary to underlying splenomegaly and cirrhosis. 4. Hepatitis C history. 5. Syncopal episode. 6. Dehydration. 7. Traumatic brain injury. 8. Discussed with staff. Subjective Constitutional: Reports: no symptoms HEENT: Reports: no symptoms Cardiovascular: Reports: no symptoms Respiratory: Reports: no symptoms Gastrointestinal/Abdominal: Reports: no symptoms Genitourinary: Reports: no symptoms Neurologic/Psychiatric: Reports: no symptoms Endocrine: Reports: no symptoms Hematologic/Lymphatic: Reports: no symptoms Allergies: Coded Allergies: No Known Allergies (Verified , 02/02/11) Subjective clear for dc Objective Last 24 Hour Vital Signs Date Time Temp Pulse Resp B/P Pulse Ox O2 Delivery O2 Flow Rate FiO2 04/20/17 12:00 89 04/20/17 12:00 97.9 75 121/79 04/20/17 08:00 68 04/20/17 07:54 97.9 75 128/82 04/20/17 04:00 73 04/20/17 04:00 98.2 68 20 134/82 98 Room Air 04/20/17 00:00 65 04/19/17 23:44 98.3 75 21 131/85 98 Room Air 04/19/17 20:00 69 04/19/17 19:50 98.8 72 20 137/93 98 Room Air Intake and Output 04/19/17 04/20/17 19:00 07:00 Intake Total 300 ml Output Total 900 ml 600 ml Balance -600 ml -600 ml Intake Oral 300 ml Output Urine Total 900 ml 600 ml # Voids 1 Height (Feet): 5 Height (Inches): 11.00 Weight (Pounds): 206 General Appearance: no apparent distress EENT: normal ENT inspection Neck: normal alignment Cardiovascular: normal rate Skin: normal pigmentation Dwayne Martinez Apr 20, 2017 17:20
[2017-04-20] MEDS ORDERED: GABAPENTIN300 MG ORAL (19:10)
[2017-04-20] MEDS ORDERED: NORCO 5-325 TA1 EACH ORAL (19:10)
[2017-04-20] MEDS ORDERED: MIRTAZAPINE7.5 MG ORAL (19:10)
[2017-04-20] MEDS ORDERED: LEXAPRO10 MG ORAL (19:10)
[2017-04-20] MEDS ORDERED: AMLODIPINE BESYL5 MG ORAL (19:10)
[2017-04-20] MEDS ORDERED: ACETAMINOPHEN120 MG ORAL (19:10)
--- NOTE | 2017-04-23 08:27 | Discharge Summary ---
Discharge Summary Hospital Course Date of Admission Apr 17, 2017 at 20:33 Date of Discharge Apr 20, 2017 at 15:00 Admitting Diagnosis syncope, dehydration HPI Tommy Bailey is a 66 year old male who was admitted on Apr 17, 2017 at 20: 33 for Syncope, Dehydration Hospital Course dc summary #[id number] Discharge Medications Discontinued Medications: Acetaminophen/Hydrocodone 5/500 (Vicodin) 1 Tab Tab 0 ORAL for For Pain, TAB Fluoxetine Hcl* (Prozac*) 10 Mg Capsule 10 MG ORAL DAILY, CAP Gabapentin* (Gabapentin*) 100 Mg Capsule 300 ORAL Gabapentin* (Gabapentin*) 300 Mg Capsule 300 MG ORAL THREE TIMES A DAY, #30 CAP 0 Refills No Known Medications* (NKM - No Known Medications*) . 0 ., 0 Refills Oxycodone Hcl Er* (Oxycontin*) 10 Mg Tab.er.12h 10 MG ORAL DAILY, TAB Risperidone* (Risperdal*) 0.25 Mg Tablet 0 ORAL, #30 TAB 0 Refills Trazodone Hcl* (Desyrel*) 50 Mg Tablet 0 PO Discharge Condition Upon Discharge: stable Discharge Disposition Patient was discharged to SNF/Subacute Facility(03) Discharge Diagnoses: Discharge Instructions Discharge Instructions Special Instructions I have been assigned to complete a D/C Summary on this account. I was not involved in the patient management Netta Rodarte NP ([place]) Apr 23, 2017 08:27
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
--- NOTE | 2017-04-24 16:31 | Electroencephalogram ---
DATE OF PROCEDURE: 04/19/2017 ELECTROENCEPHALOGRAPHY REPORT REQUESTING PHYSICIAN: Brii Waters M.D. HISTORY: This is a 66-year-old man with a history of transient unresponsiveness, memory loss, depression, substance abuse, and had recent head trauma, now undergoing workup for possible seizure activity. Current treatment include [place], Norvasc, and Neurontin. EEG was done using 18 electrodes placed in scalp to scalp, scalp to ear montages according to 10/[employer] System. Most wakeful portions of recording, background activity consists of well regulated medium voltage, alpha activities 8 cycles per second bilaterally, intermittently slight diffuse slowing noted corresponding to sleep stages. There was no asymmetry from side to side. There were no spike or wave activities. Photic stimulation was obtained. This revealed no abnormality. IMPRESSION: Normal awake stage 1 sleep EEG with photic stimulation. COMMENT: Absence of paroxysmal event on a single recording does not rule out seizure disorder. Luis Armando Montoya M.D. DR: TIMOTEO JOB#: [id number] CC:
== END 2017-04-20 15:00 | DRG 641 ==
LOC: EMR 19:14 → 2E 20:33 → EDBEDREQ 20:52
DX: E86.0 Dehydration (principal); D69.6 Thrombocytopenia, unspecified; M62.82 Rhabdomyolysis; F11.20 Opioid dependence, uncomplicated; K74.60 Unspecified cirrhosis of liver; R55 Syncope and collapse; Z87.820 Personal history of traumatic brain injury; I10 Essential (primary) hypertension; F41.9 Anxiety disorder, unspecified; F32.9 Major depressive disorder, single episode, unspecified; F19.21 Other psychoactive substance dependence, in remission; Z86.19 Personal history of other infectious and parasitic diseases; R07.9 Chest pain, unspecified; M19.011 Primary osteoarthritis, right shoulder; D63.8 Anemia in other chronic diseases classified elsewhere
CPT/HCPCS: 36415; 71010; 76700; 80053; 80300; 80329; 81003; 82140; 82607; 84443; 84484; 85025; 87081; 90732; 93005; 93970; 95819; J2405

== ENCOUNTER 2017-04-20 17:25 | Inpatient (IN) | payer MEDICARE, OTHER, MEDICAID ==
[~2017-04-20] VITALS: Ht 180.3 cm; Wt 72.6 kg
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
[2017-04-20] MEDS ORDERED: NORCO 5-325 TA1 EACH ORAL (19:10)
[2017-04-20] MEDS ORDERED: LEXAPRO10 MG ORAL (19:10)
[2017-04-20] MEDS ORDERED: GABAPENTIN300 MG ORAL (19:10)
[2017-04-20] MEDS ORDERED: AMLODIPINE BESYL5 MG ORAL (19:10)
[2017-04-20] MEDS ORDERED: MIRTAZAPINE7.5 MG ORAL (19:10)
[2017-04-20] MEDS ORDERED: ACETAMINOPHEN120 MG ORAL (19:10)
[2017-04-20 19:32] VITALS: BP 148/80
[2017-04-20 20:00] VITALS: BP 134/79
--- NOTE | 2017-04-20 20:39 | General Progress Note ---
Assessment/Plan Problem List: (1) Osteoarthritis of left shoulder ICD Codes: M19.012 - Primary osteoarthritis, left shoulder SNOMED: 06025188 (2) Syncope, vasovagal ICD Codes: R55 - Syncope and collapse SNOMED: 349935133, 139157812 (3) inability to care for self Status: progressing Assessment/Plan doesnt like the snf need to find another facility djd syncope tbi ams improved Subjective ROS Limited/Unobtainable: Yes Allergies: Coded Allergies: EGG (Verified Allergy, Unknown, 04/20/17) Pt states face swelling after consuming egg products. Objective Last 24 Hour Vital Signs Date Time Temp Pulse Resp B/P Pulse Ox O2 Delivery O2 Flow Rate FiO2 04/20/17 19:51 97.5 89 18 148/80 94 Room Air 04/20/17 19:32 97.5 89 18 148/80 94 Room Air 04/20/17 17:28 97.5 85 18 143/91 94 Room Air Height (Feet): 5 Height (Inches): 11.00 Weight (Pounds): 160 Neck: supple Cardiovascular: normal rate Respiratory/Chest: lungs clear Brii Waters MD Apr 20, 2017 20:39
[2017-04-20] MEDS ORDERED: Acetaminophen 500mg (ES) tab ORAL PRN (21:26)
[2017-04-20] MEDS: Norco 5mg/325mg tab ORAL PRN (21:33)
[2017-04-21] VITALS (7 sets, daily range): BP systolic 120–140; BP diastolic 73–99
[2017-04-21] MEDS: Norco 5mg/325mg tab ORAL PRN (05:10)
--- NOTE | 2017-04-21 22:11 | General Progress Note ---
Assessment/Plan Problem List: (1) Osteoarthritis of left shoulder ICD Codes: M19.012 - Primary osteoarthritis, left shoulder SNOMED: 27656554 (2) Syncope, vasovagal ICD Codes: R55 - Syncope and collapse SNOMED: 965126291, 286202405 (3) inability to care for self Status: progressing Assessment/Plan tbi syncope needs to find him a facility check labs no acute events Subjective ROS Limited/Unobtainable: Yes Allergies: Coded Allergies: EGG (Verified Allergy, Unknown, 04/20/17) Pt states face swelling after consuming egg products. Objective Last 24 Hour Vital Signs Date Time Temp Pulse Resp B/P Pulse Ox O2 Delivery O2 Flow Rate FiO2 04/21/17 20:00 97.9 63 20 121/76 98 Room Air 04/21/17 17:49 97.5 61 18 140/73 95 Room Air 04/21/17 16:00 97.3 82 18 135/99 95 Room Air 04/21/17 12:21 97.7 18 126/89 94 Room Air 04/21/17 08:52 96.3 69 18 120/76 95 Room Air 04/21/17 08:33 69 120/76 04/21/17 06:09 97.7 04/21/17 04:00 97.7 67 18 130/78 92 04/21/17 00:00 98.1 86 18 124/88 92 Room Air Intake and Output 04/20/17 04/21/17 19:00 07:00 Intake Total 480 ml Output Total 0 ml Balance 480 ml Intake Oral 480 ml Output Urine Total 0 ml # Voids 3 Height (Feet): 5 Height (Inches): 11.00 Weight (Pounds): 160 General Appearance: confused Cardiovascular: normal rate Respiratory/Chest: lungs clear Abdomen: non tender Brii Waters MD Apr 21, 2017 22:11
--- NOTE | 2017-04-21 23:57 | General Progress Note ---
Assessment/Plan Status: doing well, stable, progressing Assessment/Plan mdd cont current meds Subjective Constitutional: Reports: malaise, weakness Neurologic/Psychiatric: Reports: anxiety, depressed Allergies: Coded Allergies: EGG (Verified Allergy, Unknown, 04/20/17) Pt states face swelling after consuming egg products. Objective Last 24 Hour Vital Signs Date Time Temp Pulse Resp B/P Pulse Ox O2 Delivery O2 Flow Rate FiO2 04/21/17 20:00 97.9 63 20 121/76 98 Room Air 04/21/17 17:49 97.5 61 18 140/73 95 Room Air 04/21/17 16:00 97.3 82 18 135/99 95 Room Air 04/21/17 12:21 97.7 18 126/89 94 Room Air 04/21/17 08:52 96.3 69 18 120/76 95 Room Air 04/21/17 08:33 69 120/76 04/21/17 06:09 97.7 04/21/17 04:00 97.7 67 18 130/78 92 04/21/17 00:00 98.1 86 18 124/88 92 Room Air Intake and Output 04/20/17 04/21/17 19:00 07:00 Intake Total 480 ml Output Total 0 ml Balance 480 ml Intake Oral 480 ml Output Urine Total 0 ml # Voids 3 Height (Feet): 5 Height (Inches): 11.00 Weight (Pounds): 160 General Appearance: alert Neurologic: alert, oriented x 3, responsive, depressed affect Florecita Miller M.D. Apr 21, 2017 23:57
[2017-04-22] VITALS: BP 132/86
[2017-04-22 04:00] VITALS: BP 124/69
[2017-04-22 08:04] VITALS: BP 130/89
--- NOTE | 2017-04-22 10:38 | Consultation ---
Consult Note Consult Note DATE OF CONSULTATION: 04/22/17 INFECTIOUS DISEASE CONSULTATION CONSULTING PHYSICIAN: Kelli Smith M.D. REQUESTING PHYSICIAN: Brii Waters M.D. REASON FOR CONSULTATION: positive MRSA in the nares ,recommendations for antibiotics therapy. HISTORY OF PRESENT ILLNESS: The patient is a 66-year-old male with history of traumatic brain injury, hypertension, and memory loss, was sent to [facility] for syncopal episode from facility where he lives in on april 17. The patient had two witnessed syncopal episodes, one of them happened while he was standing. The patient denied any cough or shortness of breath. No fever or chills. No nausea or diarrhea. No urinary symptoms. The patient was admitted to the hospital for further evaluation and management . he had extensive work up, didn't reveal exact etiology and he was treansfered back to his SNF but patient refused to get out from the ambulance, since he didn't want to go back to the same SNF facility he was at, so he was sent back to [facility] , had nare swab which came back positive for MRSA , so I was consulted by the primary provider for antibiotics treatment for possible infection. PAST MEDICAL HISTORY: Significant for hypertension, traumatic brain injury, and memory loss. PAST SURGICAL HISTORY: Unknown and undocumented. MEDICATIONS: He is on Lexapro, Remeron, Norvasc, [place], and Tylenol. ALLERGIES: He has no known drug allergy. SOCIAL HISTORY: [facility]. No recent drugs, tobacco, or alcohol. FAMILY HISTORY: Unable to obtain. REVIEW OF SYSTEMS: Unable to obtain. The patient is a poor historian and cannot provide any history. PHYSICAL EXAMINATION: VITAL SIGNS: Temperature 97.3 degrees, pulse 62, respirations 18, blood pressure 120/77, and pulse oximetry 96% on room air. GENERAL: A middle-aged male, lying in bed, awake, alert, and not in distress. Follow commands. HEENT: Normocephalic and atraumatic. Pupils reactive to light equally. Pale sclera. Moist oral mucosa. No exudate. NECK: Supple. No lymphadenopathy. CARDIOVASCULAR: Regular rate and rhythm. No murmur or gallop. LUNGS: Clear bilaterally. Diminished breathing sounds at the bases. No wheezing or rhonchi. ABDOMEN: Soft, nontender, and nondistended. Positive bowel sounds. No hepatosplenomegaly or ascites. EXTREMITY: No edema or cyanosis. SKIN: No rash or hives. NEUROLOGIC: He moves all extremities. No facial droop. No sensory changes. LABORATORY DATA: Labs showed white count of 3.6, hemoglobin of 13, and platelet count of 129,000. BUN of 10 and creatinine of 0.8. AST of 76 and ALT of 39. Urine analysis was negative for urinary tract infection. Toxicology screening was negative. Microbiology: nares swab positive for MRSA IMAGING: He had a head CT scan, which was negative for any acute bleeding. ASSESSMENT AND RECOMMENDATIONS: 1. MRSA nares colonization: will start bactroban intranasally for 5 days. 2. altered mental status, will send blood culture and order a chest x-ray to rule out pneumonia. Recommend Neurology consult. Continue tele monitor. 2. Dehydration. Continue intravenous fluid for hydration and monitor blood pressure and electrolytes. 3. Traumatic brain injury. Continue supportive care. Kelli Smith M.D. Apr 22, 2017 10:38
[2017-04-22 12:31] VITALS: BP 142/89
[2017-04-22 17:00] VITALS: BP 139/88
[2017-04-22 20:00] VITALS: BP 132/85
--- NOTE | 2017-04-22 21:25 | General Progress Note ---
Assessment/Plan Problem List: (1) Osteoarthritis of left shoulder ICD Codes: M19.012 - Primary osteoarthritis, left shoulder SNOMED: 43516813 (2) Syncope, vasovagal ICD Codes: R55 - Syncope and collapse SNOMED: 574437042, 680820345 (3) inability to care for self Status: progressing Assessment/Plan tbi syncope needs to find him a facility dc in am stable Subjective ROS Limited/Unobtainable: Yes Allergies: Coded Allergies: EGG (Verified Allergy, Unknown, 04/20/17) Pt states face swelling after consuming egg products. Objective Last 24 Hour Vital Signs Date Time Temp Pulse Resp B/P Pulse Ox O2 Delivery O2 Flow Rate FiO2 04/22/17 20:00 97.2 73 18 132/85 96 Room Air 04/22/17 17:00 97.5 89 20 139/88 95 Room Air 04/22/17 12:31 97.7 80 18 142/89 96 Room Air 04/22/17 08:32 77 130/89 04/22/17 08:04 97.7 77 20 130/89 95 Room Air 04/22/17 04:00 97.2 65 20 124/69 97 Room Air 04/22/17 00:00 97.7 64 20 132/86 95 Room Air Intake and Output 04/21/17 04/22/17 19:00 07:00 Intake Total 120 ml Output Total 450 ml 1100 ml Balance -450 ml -980 ml Intake Oral 120 ml Output Urine Total 450 ml 1100 ml Height (Feet): 5 Height (Inches): 11.00 Weight (Pounds): 160 Respiratory/Chest: lungs clear Brii Waters MD Apr 22, 2017 21:25
[2017-04-22] MEDS ORDERED: TraZODone 50mg tab ORAL SCH (23:00)
[2017-04-23] VITALS: BP 143/86
[2017-04-23 08:00] VITALS: BP 138/85
[2017-04-23 08:59] VITALS: BP 143/86
[2017-04-23] MEDS ORDERED: TYLENOL650 MG/20. ORAL (09:12)
[2017-04-23] MEDS ORDERED: NEURONTIN100 MG ORAL (09:13)
[2017-04-23] MEDS ORDERED: NORCO 5-325 TA1 EACH ORAL (09:13)
[2017-04-23] MEDS ORDERED: TRAZODONE HCL150 MG ORAL (09:13)
[2017-04-23] MEDS ORDERED: NORVASC5 MG ORAL (09:13)
[2017-04-23] MEDS ORDERED: LEXAPRO10 MG ORAL (09:13)
--- NOTE | 2017-04-23 18:12 | General Progress Note ---
Assessment/Plan Status: doing well, stable Assessment/Plan mdd cont current meds Subjective Constitutional: Reports: weakness Allergies: Coded Allergies: EGG (Verified Allergy, Unknown, 04/20/17) Pt states face swelling after consuming egg products. All Systems: reviewed and negative except above Objective Last 24 Hour Vital Signs Date Time Temp Pulse Resp B/P Pulse Ox O2 Delivery O2 Flow Rate FiO2 04/23/17 08:59 75 143/86 04/23/17 08:00 98.3 72 19 138/85 97 Room Air 04/23/17 00:00 98.2 75 18 143/86 96 Room Air 04/22/17 20:00 97.2 73 18 132/85 96 Room Air Intake and Output 04/22/17 04/23/17 19:00 07:00 Intake Total 360 ml 420 ml Balance 360 ml 420 ml Intake Oral 360 ml 420 ml # Voids 2 Height (Feet): 5 Height (Inches): 11.00 Weight (Pounds): 160 General Appearance: no apparent distress, alert, overweight Neurologic: alert, oriented x 3, responsive, depressed affect Florecita Miller M.D. Apr 23, 2017 18:12
--- NOTE | 2017-04-24 09:24 | Discharge Summary ---
Discharge Summary Hospital Course Date of Admission Apr 20, 2017 at 18:38 Date of Discharge Apr 23, 2017 at 11:10 Admitting Diagnosis failure to thrive NANCY Bailey is a 66 year old male who was admitted on Apr 20, 2017 at 18: 38 for Failure To Thrive Hospital Course dc summary #[id number] Discharge Condition Upon Discharge: stable Discharge Disposition Patient signed AMA Discharge Diagnoses: Discharge Instructions Discharge Instructions Special Instructions I have been assigned to complete a D/C Summary on this account. I was not involved in the patient management Netta Rodarte NP (Vanchtein) Apr 24, 2017 09:24
--- NOTE | 2017-04-24 12:46 | Discharge Summary 2 SIG ---
DATE OF ADMISSION: 04/20/2017 DATE OF LEAVING AGAINST MEDICAL ADVISE : 04/23/2017 REASON FOR ADMISSION: 66-year-old male, who was discharged to [facility], refused to get out of the ambulance, stating that it was a suboptimal care. He wanted to go back to the emergency department instead. Upon presentation, he denied pain or fever. He had no complaints. His vital signs were stable. Pulse oximetry was stable on room air. The patient was in need of another placement, subsequently the patient was admitted for placement. ADMITTING DIAGNOSES: 1. Failure to thrive. 2. Failure of discharge. HOSPITAL STAY: The patient admitted. The patient started on IV fluids. Blood pressure and electrolytes were closely monitored. The patient with history of traumatic brain injury. Supportive care provided. Pain management provided for osteoarthritis of the left shoulder. The patient stated that he was unable to care for himself. Psychiatrist seen the patient due to the major depressive disorder and recommended to continue his present medication. The patient was currently on Lexapro. The patient had no other complaints. Social service seen the patient. The patient refused to talk with the manager social work and stated that he was leaving against medical advice and will go to [place]. Risks and consequences of signing against medical advice were discussed with the patient. lithopone mill worker informed the conservator regarding patient leaving against medical advise. The patient insisted on leaving. The patient left against medical advice. FINAL DIAGNOSES: 1. Dehydration. 2. History of traumatic brain injury. 3. Osteoarthritis, left shoulder. 4. History of recent vasovagal syncope. 5. Major depressive disorder. Inability to care for self. Brii Waters M.D. I have been assigned to dictate discharge summary on this account and I was not involved in the patient's management. Netta GoodsonBuffalo Psychiatric CenterJose J N.P. DR: NANI JOB#: [id number] CC: MARIBELL
== END 2017-04-23 11:10 | disposition left against medical advice (07) | DRG 641 ==
LOC: EDUNIT# 17:25 → EDBD 17:25 → EDBEDREQ 18:02 → EMR 18:26 → OBSVTOIN 18:38 → 4W 18:38 → EDBEDREQ 18:45
DX: E86.0 Dehydration (principal); I10 Essential (primary) hypertension; M19.012 Primary osteoarthritis, left shoulder; Z87.820 Personal history of traumatic brain injury; F32.9 Major depressive disorder, single episode, unspecified; Z22.322 Carrier or suspected carrier of Methicillin resistant Staphylococcus aureus; R55 Syncope and collapse; R41.82 Altered mental status, unspecified; D63.8 Anemia in other chronic diseases classified elsewhere; Z86.19 Personal history of other infectious and parasitic diseases
CPT/HCPCS: 36415; 87040; 87081